=== PATIENT | female | born 1955 | race African-American/Black ===

== ENCOUNTER 2017-01-12 12:32 | Emergency (ER) | payer SELFPAY ==
[2017-01-12] MEDS ORDERED: AMLO10TA80 PO (12:59)
[2017-01-12] MEDS ORDERED: HYDR12.54 PO (12:59)
[2017-01-12 14:36] LABS: CLARITY URINE TURBID (CLEAR); COLOR URINE YELLOW (YELLOW); GLUCOSE URINE NEGATIVE (NEGATIVE); KETONES URINE NEGATIVE (NEGATIVE); LEUKOCYTE ESTERASE URINE 3+ (NEGATIVE); NITRITE URINE POSITIVE (NEGATIVE); OCCULT BLOOD URINE 3+ (NEGATIVE); PROTEIN URINE 2+ (NEGATIVE); SPECIFIC GRAVITY URINE 1.021 (1.005-1.030)
[2017-01-12 15:29] VITALS: BP 152/89
== END 2017-01-12 15:35 | disposition home or self-care (01) ==
LOC: ER 13:28
DX: N39.0 Urinary tract infection, site not specified (principal); I10 Essential (primary) hypertension; Z88.0 Allergy status to penicillin; Z88.2 Allergy status to sulfonamides; Z88.1 Allergy status to other antibiotic agents; F43.10 Post-traumatic stress disorder, unspecified
CPT/HCPCS: 81001; 81025; 99283